=== PATIENT | female | born 1995 | race Caucasian/White ===

== ENCOUNTER 2017-03-17 17:16 | Emergency (ER) | payer MEDICAID ==
[~2017-03-17] VITALS: Ht 172.7 cm; Wt 81.0 kg
[~2017-03-17 17:16] MED LIST: IBUP600 PO; OXYC1SOL5 PO; PERI8.6T PO; PREN0.01 PO
[2017-03-17 17:20] VITALS: BP 124/90; PULSE 90; RESP 16; TEMP 98.3
--- NOTE | 2017-03-17 17:59 | PD ---
HPI Chief Complaint: Back/ Neck Pain or Injury Time Seen by Provider: 17:56 Travel History International Travel<30 days: No Contact w/Intl Traveler<30days: No Traveled to known affect area: No History of Present Illness HPI 21-year-old female presents to the emergency room for evaluation of acute low back pain. Patient has been having bilateral low back pain for the past 1-2 months. She lifts heavy And parcels at work but denies any other strenuous activity. She states last night while leaning over the bathtub to give her daughter about her pain was extremely exacerbated and she was unable to stand up. Pain is worse with sitting down, increased intrathoracic pressure, and lifting. Improves with lying back. She has been taking ibuprofen occasionally for pain. She denies radiation of symptoms. Denies saddle anesthesia, loss of bowel or bladder control, fever, chills, night sweats, weight loss, IV drug use. Denies chronic medical conditions or daily medications. PFSH Past Medical History Hx Anticoagulant Therapy: No Cardiovascular Problems: No Chemotherapy: No Cerebrovascular Accident: No Diabetes: No Respiratory: No Immunizations Current: Yes ?: Not LMP: 03/08/17 : 1 Para: 1 Past Surgical History Hysterectomy: No Social History Alcohol Use: Yes (socially) Tobacco Use: No Substance Use: No Allergies-Medications (Allergen,Severity, Reaction): Coded Allergies: No Known Allergies (Unverified , 03/17/17) Reported Meds & Prescriptions Reported Meds & Active Scripts Active Robaxin (Methocarbamol) 750 Mg Tab 750 Mg PO Q8HR Ibuprofen 600 Mg Tab 600 Mg PO Q8HR PRN Review of Systems Except as stated in HPI: all other systems reviewed are Neg Physical Exam Narrative GENERAL: Well-nourished, well-developed female in no acute distress. Afebrile. Ambulatory. SKIN: Focused skin assessment warm/dry. HEAD: Normocephalic. EYES: No scleral icterus. No injection or drainage. NECK: Supple, trachea midline. No JVD or lymphadenopathy. CARDIOVASCULAR: Regular rate and rhythm without murmurs, gallops, or rubs. RESPIRATORY: Breath sounds equal bilaterally. No accessory muscle use. BACK: No CVA tenderness. No rash. No point tenderness on palpation of the spine. Tenderness to palpation of the bilateral paraspinous musculature of the lumbar spine. Strength 5/5 and equal in lower extremities. 1+ Achilles and patellar reflexes equal bilaterally. Positive straight leg raise on the right. Data Data Last Documented VS Vital Signs Date Time Temp Pulse Resp B/P Pulse Ox O2 Delivery O2 Flow Rate FiO2 03/17/17 17:20 98.3 90 16 124/90 Orders Ketorolac Inj (Toradol Inj) (03/17/17 18:00) Orphenadrine Inj (Norflex Inj) (03/17/17 18:00) [facility] Medical Decision Making Medical Screen Exam Complete: Yes Emergency Medical Condition: Yes Medical Record Reviewed: Yes Differential Diagnosis Spondylolisthesis versus strain versus sprain versus fracture unlikely Narrative Course 21-year-old female presents to the emergency room for evaluation of low back pain for the past 2 months. 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 No redness like symptoms. No midline tenderness. No focal neurological deficits. Strength 5/5 and equal in all extremities. Ambulatory without a limp. 1+ Achilles and patellar reflexes are equal bilaterally. Given that there is no direct trauma or red flag symptoms, imaging is not indicated at this time. Patient will be treated conservatively with Toradol and Norflex in the emergency room and discharged with prescriptions for ibuprofen and Robaxin. She has an appointment with her chiropractor tomorrow and would like to defer x-rays until that time. Diagnosis Primary Impression: Low back strain Qualified Code: S39.012A - Low back strain, initial encounter Referrals: Primary Care Physician Patient Instructions: General Instructions, Low Back Strain (ED) Additional Instructions: Rest and drink plenty of fluids. Take Robaxin as directed, as needed for pain. Take ibuprofen with food as directed, as needed for pain. Apply ice to the affected area for 20 minutes at a time, as needed for pain and swelling. Follow-up with a primary care physician. Return to the emergency room for worsening symptoms. Scripts Methocarbamol (Robaxin)750 Mg [id number] Mg PO Q8HR #21 TAB Ref 0 Prov:Christopher Harrison MD 03/17/17 Ibuprofen 600 Mg [id number] Mg PO Q8HR PRN (PAIN) #21 TAB Ref 0 Prov:Christopher Harrison MD 03/17/17 Disposition: 01 DISCHARGE HOME Condition: Stable Dolores Burch March 17, 2017 17:59
[2017-03-17] MEDS ORDERED: ORPHENADRINE INJ 60 MG/2 ML AMP IM ONE (18:00)
[2017-03-17] MEDS ORDERED: IBUP-232 PO (18:00)
[2017-03-17] MEDS ORDERED: KETOROLAC TROMETHAMINE 60 MG/2 ML (IM) VIAL IM ONE (18:00)
[2017-03-17] MEDS ORDERED: ROBA750T PO (18:00)
== END 2017-03-17 18:26 | disposition home or self-care (01) ==
LOC: PHEFT 17:16
DX: S39.012A Strain of muscle, fascia and tendon of lower back, initial encounter (principal); Z79.899 Other long term (current) drug therapy; X50.0XXA Overexertion from strenuous movement or load, initial encounter
CPT/HCPCS: 96372; 99283; J1885; J2360